=== PATIENT | male | born 1990 | race Two or more races ===

== ENCOUNTER 2024-10-18 13:07 | Emergency (ER) | payer MEDICAID, SELFPAY ==
[2024-10-18 13:27] VITALS: BP 119/78; PULSE 65; RESP 16; TEMP 36.7; O2SAT 98; BMI 27.8
--- NOTE | 2024-10-18 13:28 | XR_ITS ---
Examination: CT brain head without contrast. 2-D sagittal coronal reconstructions Date and time of exam:October 18, 2024 1405 hours INDICATIONS: Patient fell one day ago with injury of the head, loss of consciousness episode followed by head pain COMPARISON: December 30, 2009 CTDI: vol (mGy):50.9 DLP: (mGycm):1120 Technique: Multiple CT axial sections of the brain have been obtained, 5 mm slice thickness. Contrast has not been administered. 2-D sagittal, coronal reconstructions have been obtained Low dose protocols were performed. One or more of the following dose reduction techniques were used; automated exposure control, adjustment of the mA and/or KV according to patient size, use of iterative reconstruction technique. Findings: No significant ventricular enlargement. Intra-axial or extra-axial hemorrhage density is not seen. No mass effect or midline shift Basal cisterns are not remarkable. Fourth ventricle is midline. Cranial vault intact. Impression: Negative for acute hemorrhage, mass effect or midline shift
--- NOTE | 2024-10-18 13:29 | PD.EDRME ---
Rapid Medical Screening Exam RME Arrival date/time: 10/18/24 13:07 Chief Complaint: Head Injury Time Seen by Provider: 10/18/24 13:17 Vital signs: Vital Signs Temperature 98.1 F 10/18/24 13:27 Pulse Rate 65 10/18/24 13:27 Respiratory Rate 16 10/18/24 13:27 Blood Pressure 119/78 10/18/24 13:27 Pulse Oximetry (%) 98 10/18/24 13:27 Oxygen Delivery Method Room Air 10/18/24 13:27 RME Narrative: Patient slipped coming down a ladder yesterday and hit forehead against ladder rung, possible LOC. c/o generalized headache.
[2024-10-18] MEDS: ACETAMINOPHEN 500 MG TABLET 1000 MG PO (15:09)
--- NOTE | 2024-10-18 16:13 | PD.EDHEAD ---
ED Head Injury RME/HPI General Chief complaint: Head Injury Stated complaint: HIT RIGHT FOREHEAD DURING FALL FROM LADDER 0700 Time Seen by Provider: 10/18/24 13:17 Source: patient, RN notes reviewed and old records reviewed Arrival date/time: 10/18/24 13:07 Mode of arrival: ambulatory Limitations: no limitations RME / HPI RME / HPI Narrative: 34yom presents to ED for BRODERICK and intermittent dizziness s/p head injury yesterday. Patient states he slipped coming down a ladder and hit his forehead against a ladder rung, possible LOC. No neck pain, vision changes or confusion reported. Patient has taken ibuprofen and Tylenol with minimal relief. Related Data Home Medications ?Medication ?Instructions ?Recorded ?Confirmed omeprazole 20 mg capsule,delayed 20 mg PO BID 02/01/21 02/01/21 release Previous Rx's ?Medication ?Instructions ?Recorded ondansetron 4 mg disintegrating 4 mg PO Q12H PRN nausea and 03/17/23 tablet vomiting #4 tabs acetaminophen 500 mg tablet 1,000 mg (2 x 500 mg) PO Q6H PRN 10/18/24 (Tylenol Extra Strength) pain #30 tabs ibuprofen 600 mg tablet 600 mg PO Q6H PRN pain #30 tabs 10/18/24 Allergies Allergy/AdvReac Type Severity Reaction Status Date / Time metoclopramide Allergy Severe ANXIETY Verified 10/18/24 13:10 Review of Systems Review of Systems Systems Reviewed: All systems reviewed, normal except as documented Constitutional Constitutional: Reports headache(s) Eyes Eyes: Denies blurry vision and Denies loss of vision ENT Ears, Nose, Mouth, and Throat: Reports dizziness, Reports headache(s) and Denies neck pain Cardiovascular Cardiovascular: Denies syncope Musculoskeletal Musculoskeletal: Denies neck pain Neurologic Neurologic: Denies confusion, Reports dizziness, Reports headache(s), Denies loss of vision and Denies syncope Psychiatric Psychiatric: Denies confusion Past Medical History Past Medical History NEUROLOGIC: Negative Neurological Disorders or Seizures CARDIAC: Negative Cardiac Disorders or Congestive Heart Failure RESPIRATORY: Negative Chronic Obstructive Pulmonary Disease (COPD) or Asthma GASTROINTESTINAL: Positive Gastrointestinal Disorders (ibs) and Gall Bladder Disease GENITOURINARY: Negative Genitourinary Disorders or Renal Disease MUSCULOSKELETAL: Negative Musculoskeletal Disorders ENDOCRINE: Negative Endocrine Disorders, Diabetes Mellitus Type 1 or Diabetes Mellitus Type 2 HEMATOLOGIC: Negative Blood Disorders or Sickle Cell Disease PSYCHO/SOCIAL: Positive Anxiety OTHER HISTORY: Negative Blood Transfusions or Anesthesia Reactions Social History SMOKING STATUS: Never smoker SUBSTANCE USE: does not use ED Exam General Limitations: Present no limitations General appearance: Present alert and in no apparent distress Head Head exam: Present atraumatic and normocephalic Eye Eye exam: Present normal appearance, PERRL and EOMI ENT ENT exam: Present normal exam and mucous membranes moist Neck Neck exam: Present normal inspection and full ROM Chest Chest inspection: Present normal inspection and symmetric chest wall rise Respiratory Respiratory exam: Present normal lung sounds bilaterally; Absent respiratory distress Cardiovascular Cardiovascular exam: Present regular rate and normal rhythm Extremities Exam Extremities exam: Present normal inspection and full ROM Back Exam Back exam: Present full ROM; Absent paraspinal tenderness or vertebral tenderness Neurological Exam Neurological exam: Present alert, oriented X3, CN II-XII intact and normal gait; Absent motor sensory deficit Psychiatric Psychiatric exam: Present normal affect and normal mood Skin Skin exam: Present warm, dry, intact and normal color Course Quality Measures none Orders Category Date Time Status CT head/brain wo con Stat Exams 10/18/24 13:28 Completed Acetaminophen Tab [Tylenol ES Tab] Med 10/18/24 13:28 Discontinued 1,000 mg PO X1 ONE Vital Signs Vital signs: Vital Signs Temperature 98.1 F 10/18/24 13:27 Pulse Rate 65 10/18/24 13:27 Respiratory Rate 16 10/18/24 13:27 Blood Pressure 119/78 10/18/24 13:27 Pulse Oximetry (%) 98 10/18/24 13:27 Oxygen Delivery Method Room Air 10/18/24 13:27 Head Injury MDM Narrative MDM Narrative:: 34yom presents to ED for BRODERICK and intermittent dizziness s/p head injury yesterday. Patient states he slipped coming down a ladder and hit his forehead against a ladder rung, possible LOC. No neck pain, vision changes or confusion reported. Patient has taken ibuprofen and Tylenol with minimal relief. CT head is negative. Patient is neurologically intact. Symptoms c/w mild concussion. Encouraged brain rest, Motrin/Tylenol prn pain. Close PCP follow-up recommended. Stable for discharge, RTED precautions given. Patient data External records reviewed:: [facility] previous records (05/30/2024 ED visit for back contusion) Clinical information provided by:: patient Social determinants that could affect healthcare access:: none Patient has the following chronic illnesses:: Anxiety How is presenting disease/condition affected by chronic disease/condition?: exacerbated by Evaluation data The following diagnostics were reviewed and interpreted by me:: radiology exam(s) Lab and/or radiology exams considered but not ordered:: None Interpretation Summary: CT head: No ICH per my read Medications / Prescriptions Medications or Prescriptions considered but not ordered:: None Medication administrations:: Medication Administration History Discontinued Medications Acetaminophen (Acetaminophen 500 Mg Tablet) 1,000 mg PO X1 ONE Stop: 10/18/24 13:29 Last Admin: 10/18/24 15:09 Dose: 1,000 mg Documented By: AM No antibiotics recommended at this time Consultations Consultation(s) initiated? (list below): No Diagnosis Differential diagnosis head injury: epidural hematoma, closed head injury, subdural hematoma and other (concussion, ICH, skull fracture) Most likely diagnosis given after review of the tests above:: Concussion, head injury Admission Indicated Admission indicated?: not indicated Admission Request Was there a request for admission?: No Disposition Plan Disposition Plan: Discharge Discharge Attestation Discharge Attestation: The patient and all family members were given an opportunity to ask questions and understood the discharge instructions. Discharge instructions specifically effects, indications for sooner follow up or return to the emergency department, and the expected course of current diagnosis. Patient condition: Stable Discharge Plan Plan Patient Disposition: HOME (Self Care) Patient condition on transfer: Stable Prescriptions/Referrals Prescriptions/Med Rec: New ibuprofen 600 mg tablet 600 mg PO Q6H PRN (Reason: pain) Qty: 30 0RF acetaminophen [Tylenol Extra Strength] 500 mg tablet 1,000 mg PO Q6H PRN (Reason: pain) Qty: 30 0RF No Action omeprazole 20 mg capsule,delayed release(DR/EC) 20 mg PO BID Patient Comments: take 1 capsule by mouth twice a day ondansetron 4 mg tablet,disintegrating 4 mg PO Q12H PRN (Reason: nausea and vomiting) Qty: 4 0RF Referrals: Juan Ramon Peters [employer] [Primary Care Provider] - In 1 week Problem List Clinical Impression: Concussion, Head injury Patient/Caregiver Discharge Instructions Education Materials: ED Concussion Print Language: British Stand Alone Forms: [place] Award Info., Work/School Release, Patient Portal Info Letter LEAH/NAM Supervising Physician JENNIE Supervising Physician: Marly
== END 2024-10-18 16:25 | disposition home or self-care (01) ==
PROVIDERS: Emergency Provider Emergency Medicine; PCP Nurse Practitioner Family
DX: S06.0X0A Concussion without loss of consciousness, initial encounter (principal); W11.XXXA Fall on and from ladder, initial encounter
CPT/HCPCS: 70450; 99284; A9270

== ENCOUNTER 2024-11-13 02:47 | Emergency (ER) | payer MEDICAID, SELFPAY ==
[2024-11-13 02:47] VITALS: PULSE 77; RESP 18; O2SAT 97
[2024-11-13 03:05] VITALS: BP 138/79; PULSE 78; RESP 18; TEMP 37.1; O2SAT 100; BMI 27.9
--- NOTE | 2024-11-13 03:20 | XR_ITS ---
Examination: PA lateral chest 2 views Technique: Upright PA lateral chest 2 views Exam date and time: November 13, 2024 0325 hrs. Comparison September 04, 2018 Indications: Coughing beginning yesterday Findings: Normal heart size. Lungs are clear. The osseous structures are intact Impression: No active disease
--- NOTE | 2024-11-13 03:20 | PD.EDRME ---
Rapid Medical Screening Exam RME Arrival date/time: 11/13/24 02:47 34-year-old male presents emergency department complaining of sore throat, cough, and left earache for several days. Chief Complaint: Headache Time Seen by Provider: 11/13/24 03:06 Vital signs: Vital Signs Temperature 98.8 F 11/13/24 03:05 Pulse Rate 78 11/13/24 03:05 Respiratory Rate 18 11/13/24 03:05 Blood Pressure 138/79 H 11/13/24 03:05 Pulse Oximetry (%) 100 11/13/24 03:05 Oxygen Delivery Method Room Air 11/13/24 03:05 Vital signs reviewed by provider: Yes
[2024-11-13 04:28] LABS: Strep A Rapid Negative (Negative)
--- NOTE | 2024-11-13 04:34 | PD.EDURI ---
Upper Respiratory Inf. RME/HPI General Chief Complaint: Headache Stated Complaint: Headache Time Seen by Provider: 11/13/24 03:06 Source: patient Arrival date/time: 11/13/24 02:47 34-year-old male CODI presents emergency department complaining of sore throat, cough, and left earache for several days. Mode of arrival: ambulatory Limitations: no limitations RME / HPI RME / HPI Narrative: 11/13/24 02:47 34-year-old male presents emergency department complaining of sore throat, cough, and left earache for several days. Related Data Home Medications ?Medication ?Instructions ?Recorded ?Confirmed omeprazole 20 mg capsule,delayed 20 mg PO BID 02/01/21 02/01/21 release Previous Rx's ?Medication ?Instructions ?Recorded ondansetron 4 mg disintegrating 4 mg PO Q12H PRN nausea and 03/17/23 tablet vomiting #4 tabs acetaminophen 500 mg tablet 1,000 mg (2 x 500 mg) PO Q6H PRN 10/18/24 (Tylenol Extra Strength) pain #30 tabs ibuprofen 600 mg tablet 600 mg PO Q6H PRN pain #30 tabs 10/18/24 ibuprofen 600 mg tablet 600 mg PO Q8H PRN pain #20 tabs 11/13/24 Allergies Allergy/AdvReac Type Severity Reaction Status Date / Time metoclopramide Allergy Severe ANXIETY Verified 10/18/24 13:10 Review of Systems Review of Systems Systems Reviewed: All systems reviewed, normal except as documented Constitutional Constitutional: Reports system reviewed and no additional complaints, except as documented, Denies body ache(s), Denies chills and Denies fever(s) Eyes Eyes: Reports system reviewed and no additional complaints, except as documented and Denies change in vision ENT Ears, Nose, Mouth, and Throat: Reports system reviewed and no additional complaints, except as documented, Denies disequilibrium, Denies dizziness, Reports otalgia, Reports sore throat and Denies vertigo Cardiovascular Cardiovascular: Reports system reviewed and no additional complaints, except as documented, Denies chest pain and Denies dyspnea Respiratory Respiratory: Reports system reviewed and no additional complaints, except as documented, Denies chest congestion, Reports cough and Denies dyspnea Gastrointestinal Gastrointestinal: Reports system reviewed and no additional complaints, except as documented, Denies abdominal pain, Denies nausea and Denies vomiting Musculoskeletal Musculoskeletal: Reports system reviewed and no additional complaints, except as documented, Denies abnormal gait and Denies arthralgias Integumentary/Breasts Skin/Breast: Reports system reviewed and no additional complaints, except as documented, Denies erythema, Denies rash and Denies wounds Neurologic Neurologic: Reports system reviewed and no additional complaints, except as documented, Denies abnormal gait, Denies disequilibrium, Denies dizziness and Denies vertigo Past Medical History Past Medical History NEUROLOGIC: Negative Neurological Disorders or Seizures CARDIAC: Negative Cardiac Disorders or Congestive Heart Failure RESPIRATORY: Negative Chronic Obstructive Pulmonary Disease (COPD) or Asthma GASTROINTESTINAL: Positive Gastrointestinal Disorders (ibs) and Gall Bladder Disease GENITOURINARY: Negative Genitourinary Disorders or Renal Disease MUSCULOSKELETAL: Negative Musculoskeletal Disorders ENDOCRINE: Negative Endocrine Disorders, Diabetes Mellitus Type 1 or Diabetes Mellitus Type 2 HEMATOLOGIC: Negative Blood Disorders or Sickle Cell Disease PSYCHO/SOCIAL: Positive Anxiety OTHER HISTORY: Negative Blood Transfusions or Anesthesia Reactions Social History SMOKING STATUS: Never smoker SUBSTANCE USE: does not use ED Exam General Limitations: Present no limitations General appearance: Present alert and in no apparent distress Head Head exam: Present atraumatic Eye Eye exam: Present normal appearance, PERRL and EOMI ENT ENT exam: Present normal exam, normal oropharynx and mucous membranes moist Neck Neck exam: Present normal inspection, full ROM and trachea midline Chest Chest inspection: Present normal inspection and symmetric chest wall rise Respiratory Respiratory exam: Present normal lung sounds bilaterally Cardiovascular Cardiovascular exam: Present regular rate, normal rhythm and normal heart sounds Abdominal Exam Abdominal exam: Present soft and normal bowel sounds Extremities Exam Extremities exam: Present normal inspection and full ROM Back Exam Back exam: Present normal inspection and full ROM Neurological Exam Neurological exam: Present alert, oriented X3 and CN II-XII intact Psychiatric Psychiatric exam: Present normal affect and normal mood Skin Skin exam: Present warm, dry, intact and normal color Course Quality Measures none Orders Category Date Time Status Bedside Influenza A&B Antigen Test NOW Care 11/13/24 03:20 Completed XR chest 2V Stat Exams 11/13/24 03:20 Taken Strep A Rapid Stat Lab 11/13/24 03:25 Completed Ketorolac Inj [Toradol Inj] Med 11/13/24 04:21 Discontinued 30 mg IM X1 ONE Vital Signs Vital signs: Vital Signs Temperature 98.8 F 11/13/24 03:05 Pulse Rate 78 11/13/24 03:05 Respiratory Rate 18 11/13/24 03:05 Blood Pressure 138/79 H 11/13/24 03:05 Pulse Oximetry (%) 100 11/13/24 03:05 Oxygen Delivery Method Room Air 11/13/24 03:05 100% room air within normal limits Upper Respiratory Infection MDM Narrative MDM Narrative:: 34-year-old male CODI presents emergency department complaining of sore throat, cough, and left earache for several days. No adventitious lung sounds on auscultation. Chest x-ray unremarkable for any pneumonic infiltrates based on my interpretation. Patient satting 100% on room air in no visible respiratory distress speaking in full sentences. Strep swab and influenza negative. ENT exam unremarkable no obvious signs of ear infection. Patient likely has viral infection. Patient data External records reviewed:: [facility] previous records Clinical information provided by:: patient Social determinants that could affect healthcare access:: none Patient has the following chronic illnesses:: None How is presenting disease/condition affected by chronic disease/condition?: no chronic disease Evaluation data The following diagnostics were reviewed and interpreted by me:: lab results and radiology exam(s) Lab and/or radiology exams considered but not ordered:: Ordered Interpretation Summary: Interpreted by me Medications / Prescriptions Medications or Prescriptions considered but not ordered:: Ordered Medication administrations:: Medication Administration History Discontinued Medications Ketorolac Tromethamine (Ketorolac Inj 60 Mg/2 Ml Vial) 30 mg IM X1 ONE Stop: 11/13/24 04:22 Given Consultations Consultation(s) initiated? (list below): No Diagnosis Upper Respiratory Differential Diagnosis: upper respiratory infection, otitis media, sinusitis, viral infection, bronchitis, influenza and pharyngitis Most likely diagnosis given after review of the tests above:: Viral infection Admission Indicated Admission indicated?: not indicated Admission Request Was there a request for admission?: No Disposition Plan Disposition Plan: Discharge Discharge Attestation Discharge Attestation: The patient and all family members were given an opportunity to ask questions and understood the discharge instructions. Discharge instructions specifically effects, indications for sooner follow up or return to the emergency department, and the expected course of current diagnosis. Patient condition: Stable Discharge Plan Plan Patient Disposition: HOME (Self Care) Disposition Comment: Stable Prescriptions/Referrals Prescriptions/Med Rec: New ibuprofen 600 mg tablet 600 mg PO Q8H PRN (Reason: pain) Qty: 20 0RF No Action omeprazole 20 mg capsule,delayed release(/EC) 20 mg PO BID Patient Comments: take 1 capsule by mouth twice a day ibuprofen 600 mg tablet 600 mg PO Q6H PRN (Reason: pain) Qty: 30 0RF acetaminophen [Tylenol Extra Strength] 500 mg tablet 1,000 mg PO Q6H PRN (Reason: pain) Qty: 30 0RF ondansetron 4 mg tablet,disintegrating 4 mg PO Q12H PRN (Reason: nausea and vomiting) Qty: 4 0RF Problem List Clinical Impression: Viral infection Patient/Caregiver Discharge Instructions Discharge Activity: activity as tolerated Education Materials: ED Viral Syndrome (Adult) Additional Instructions: Drink plenty of fluids and get plenty of rest. Take ibuprofen or Tylenol as needed for fever or pain. Follow-up with primary care provider in 2 to 3 days. Return to emergency department for any worsening symptoms or as needed. Print Language: Malay Stand Alone Forms: [place] Award Info., Patient Portal Info Letter PA/[employer]SEMBLER Supervising Physician PA/[employer]SEMBLER Supervising Physician: Dr. Byrnes
[2024-11-13] MEDS: IBUPROFEN TAB 600 MG TABLET PO (04:43)
== END 2024-11-13 04:45 | disposition home or self-care (01) ==
LOC: SERX 04:49
PROVIDERS: Emergency Provider Emergency Medicine
DX: B34.9 Viral infection, unspecified (principal); R05.9 Cough, unspecified
CPT/HCPCS: 71046; 87400; 87651; 99283; A9270

== ENCOUNTER 2025-10-03 11:06 | Emergency (ER) | payer MEDICAID, SELFPAY ==
--- NOTE | 2025-10-03 11:56 | XR_ITS ---
Examination: Wrist, right 3 views Technique: Wrist AP, oblique, lateral 3 views Date and time of exam: September 25, 2025, 12:00 p.m. INDICATIONS: Injury of the wrist 4 days ago, wrist pain. FINDINGS: No wrist fracture or dislocation IMPRESSION: No wrist fracture or dislocation
[2025-10-03 11:58] VITALS: BP 136/70; PULSE 89; RESP 18; TEMP 36.9; O2SAT 100
--- NOTE | 2025-10-03 11:59 | EDNOTE_ITS ---
Upper Extremity Injury RME/HPI General Chief Complaint: Hand/Wrist Problems Stated Complaint: RIGHT WRIST INJURY Time Seen by Provider: 10/03/25 11:22 Source: patient Arrival date/time: 10/03/25 11:06 35-year-old male with no known medical history presents to the emergency room with a chief complaint of tenderness to his right wrist after working on his car and hitting it against the car motor 3 days ago Mode of arrival: ambulatory Limitations: no limitations Related Data Home Medications ?Medication ?Instructions ?Recorded ?Confirmed omeprazole 20 mg capsule,delayed 20 mg PO BID 02/01/21 02/01/21 release Previous Rx's ?Medication ?Instructions ?Recorded ondansetron 4 mg disintegrating 4 mg PO Q12H PRN nause a and 03/17/23 tablet vomiting #4 tabs acetaminophen 500 mg tablet 1,000 mg (2 x 500 mg) PO Q 6H PRN 10/18/24 (Tylenol Extra Strength) pain #30 tabs ibuprofen 600 mg tablet 600 mg PO Q6H PRN pain #30 t abs 10/18/24 ibuprofen 600 mg tablet 600 mg PO Q8H PRN pain #20 t abs 11/13/24 Allergies Allergy/AdvReac Type Severity Reaction Status Date / Time metoclopramide Allergy Severe ANXIETY Verified 10/03/25 11:08 Review of Systems Review of Systems Systems Reviewed: All systems reviewed, normal except as documented Constitutional Constitutional: Reports system reviewed and no additional complaints, except as documented, Denies fatigue, Denies fever(s), Denies headache(s) and Denies weakness Eyes Eyes: Reports system reviewed and no additional complaints, except as documented, Denies blurry vision and Denies change in vision ENT Ears, Nose, Mouth, and Throat: Reports system reviewed and no additional complaints, except as documented, Denies otalgia, Denies headache(s), Denies nasal congestion, Denies throat swelling and Denies vertigo Cardiovascular Cardiovascular: Reports system reviewed and no additional complaints, except as documented, Denies chest pain, Denies dyspnea and Denies dyspnea on exertion Respiratory Respiratory: Reports system reviewed and no additional complaints, except as documented, Denies chest congestion, Denies cough, Denies dyspnea, Denies dyspnea on exertion and Denies wheezing Gastrointestinal Gastrointestinal: Reports system reviewed and no additional complaints, except as documented, Denies abdominal pain, Denies cramping, Denies nausea and Denies vomiting Genitourinary Genitourinary: Reports system reviewed and no additional complaints, except as documented, Denies dysuria and Denies hematuria Musculoskeletal Musculoskeletal: Reports system reviewed and no additional complaints, except as documented, Reports arthralgias, Denies back pain and Reports joint swelling Integumentary/Breasts Skin/Breast: Reports system reviewed and no additional complaints, except as documented and Denies wounds Neurologic Neurologic: Reports system reviewed and no additional complaints, except as documented, Denies confusion, Denies headache(s), Denies lack of coordination, Denies vertigo and Denies weakness Psychiatric Psychiatric: Reports system reviewed and no additional complaints, except as documented, Denies anxiety, Denies confusion, Denies depression, Denies paranoia, Denies suicidal ideation and Denies tactile hallucinations Endocrine Endocrine: Reports system reviewed and no additional complaints, except as documented and Denies fatigue Hematologic/Lymphatic Hematologic/Lymphatic: Reports system reviewed and no additional complaints, except as documented and Denies lymphadenopathy Allergic/Immunologic Allergic/Immunologic: Reports system reviewed and no additional complaints, except as documented, Denies throat swelling, Denies urticaria and Denies wheezing Past Medical History Past Medical History NEUROLOGIC: Negative Neurological Disorders or Seizures CARDIAC: Negative Cardiac Disorders or Congestive Heart Failure RESPIRATORY: Negative Chronic Obstructive Pulmonary Disease (COPD) or Asthma GASTROINTESTINAL: Positive Gastrointestinal Disorders (ibs) and Gall Bladder Disease GENITOURINARY: Negative Genitourinary Disorders or Renal Disease MUSCULOSKELETAL: Negative Musculoskeletal Disorders ENDOCRINE: Negative Endocrine Disorders, Diabetes Mellitus Type 1 or Diabetes Mellitus Type 2 HEMATOLOGIC: Negative Blood Disorders or Sickle Cell Disease PSYCHO/SOCIAL: Positive Anxiety OTHER HISTORY: Negative Blood Transfusions or Anesthesia Reactions Social History SMOKING STATUS: Never smoker SUBSTANCE USE: does not use ED Exam General Limitations: Present no limitations General appearance: Present alert and in no apparent distress Head Head exam: Present atraumatic Eye Eye exam: Present normal appearance, PERRL and EOMI ENT ENT exam: Present normal exam, normal oropharynx and mucous membranes moist Neck Neck exam: Present normal inspection, full ROM and trachea midline Chest Chest inspection: Present normal inspection and symmetric chest wall rise Respiratory Respiratory exam: Present normal lung sounds bilaterally Cardiovascular Cardiovascular exam: Present regular rate, normal rhythm and normal heart sounds Abdominal Exam Abdominal exam: Present soft and normal bowel sounds Extremities Exam Extremities exam: Present normal inspection and full ROM Expanded Upper Extremity Exam Shoulder exam: Present normal inspection Arm exam: Present normal inspection Elbow exam: Present normal inspection Forearm/Wrist exam: Present full ROM, tenderness and swelling; Absent erythema, tenderness over anatomical snuff box or pain with axial thumb loading Back Exam Back exam: Present normal inspection and full ROM Neurological Exam Neurological exam: Present alert, oriented X3 and CN II-XII intact Psychiatric Psychiatric exam: Present normal affect and normal mood Skin Skin exam: Present warm, dry, intact and normal color Course Quality Measures none Orders Category Date Time Status sling [Splint / Immobilizer] STAT Care 10/03/25 11:56 Completed XR wrist comp RT min 3V Stat Exams 10/03/25 11:56 Completed Ketorolac Inj [Toradol Inj] Med 10/03/25 11:56 Discontinued 30 mg IM X1 ONE Vital Signs Vital signs: Vital Signs Temperature 98.5 F 10/03/25 11:58 Pulse Rate 89 10/03/25 11:58 Respiratory Rate 18 10/03/25 11:58 Blood Pressure 136/70 H 10/03/25 11:58 Pulse Oximetry (%) 100 10/03/25 11:58 Oxygen Delivery Method Room Air 10/03/25 11:58 Extremity Injury MDM Narrative MDM Narrative:: 35-year-old male with no known medical history presents to the emergency room with a chief complaint of tenderness to his right wrist after working on his car and hitting it against the car motor 3 days ago Patient is hemodynamically stable and in no apparent distress Physical examination shows tenderness and swelling to the patient's right wrist. The patient has tenderness but has full range of motion. X-ray of the wrist was completed and was negative for any acute fracture or dislocation Patient was discharged and educated to follow-up with primary care provider in the next 24 to 48 hours and return to the emergency room for any evidence of worsening signs or symptoms Patient data External records reviewed:: [facility] previous records Clinical information provided by:: patient Social determinants that could affect healthcare access:: none Patient has the following chronic illnesses:: No chronic illness How is presenting disease/condition affected by chronic disease/condition?: no chronic disease Evaluation data The following diagnostics were reviewed and interpreted by me:: lab results and radiology exam(s) Lab and/or radiology exams considered but not ordered:: Labs and radiology exams considered and ordered Interpretation Summary: X-ray wrist-no acute fracture or dislocation Medications / Prescriptions Medications or Prescriptions considered but not ordered:: Medication given Medication administrations:: Medication Administration History Discontinued Medications Ketorolac Tromethamine (Ketorolac Inj 60 Mg/2 Ml Vial) 30 mg IM X1 ONE Stop: 10/03/25 11:57 Last Admin: 10/03/25 12:37 Dose: Not Given Documented By: Non-Admin Reason: Patient Refused Medication given Consultations Consultation(s) initiated? (list below): No Diagnosis Upper Extremity Injury Differential Diagnosis: sprain and strain of wrist, fracture of wrist and other Most likely diagnosis given after review of the tests above:: Tendinitis of wrist Admission Indicated Admission indicated?: not indicated Admission Request Was there a request for admission?: No Disposition Plan Disposition Plan: Discharge Discharge Attestation Discharge Attestation: The patient and all family members were given an opportunity to ask questions and understood the discharge instructions. Discharge instructions specifically effects, indications for sooner follow up or return to the emergency department, and the expected course of current diagnosis. Patient condition: Stable Discharge Plan Plan Patient Disposition: HOME (Self Care) Discharge Disposition comment: Stable Prescriptions/Referrals Prescriptions/Med Rec: No Action omeprazole 20 mg capsule,delayed release(DR/EC) 20 mg PO BID Patient Comments: take 1 capsule by mouth twice a day ibuprofen 600 mg tablet 600 mg PO Q6H PRN (Reason: pain) Qty: 30 0RF acetaminophen [Tylenol Extra Strength] 500 mg tablet 1,000 mg PO Q6H PRN (Reason: pain) Qty: 30 0RF ondansetron 4 mg tablet,disintegrating 4 mg PO Q12H PRN (Reason: nausea and vomiting) Qty: 4 0RF ibuprofen 600 mg tablet 600 mg PO Q8H PRN (Reason: pain) Qty: 20 0RF Referrals: No Primary/Family,Physician [Primary Care Provider] - In 1 week Problem List Clinical Impression: Tendinitis of wrist Patient/Caregiver Discharge Instructions Additional Instructions: Please follow-up with your primary care provider in the next 24 to 48 hours X-rays of your wrist were negative for any acute fracture or dislocation For any evidence of worsening signs or symptoms return to the emergency room immediately Print Language: [place] Stand Alone Forms: [place] Award Info., Work/School Release, Patient Portal Info Letter LEAH/NAM Supervising Physician LEAH/NAM Supervising Physician: Dr. Armendariz
== END 2025-10-03 14:52 | disposition home or self-care (01) ==
PROVIDERS: Emergency Provider Nurse Practitioner Family
DX: M77.8 Other enthesopathies, not elsewhere classified (principal)
CPT/HCPCS: 73110; 99282